=== PATIENT | male | born 1965 | race American Indian/Alaskan Native ===

== ENCOUNTER 2017-11-07 19:58 | Emergency (ER) | payer BC ==
[2017-11-07 20:02] VITALS: BMI 40.8
[2017-11-07 20:07] VITALS: BP 131/84; TEMP 98.7
--- NOTE | 2017-11-07 21:29 | ED PDOC ---
Arrival/HPI - General Chief Complaint: Lower Extremity Problem/Injury Time Seen by Provider: 11/07/17 20:22 Historian: Patient - History of Present Illness Narrative History of Present Illness (Text): 11/07/17 20:43 Patient is a 51 year old male whose past medical history includes hypertension, who presents to the Emergency department complaining of left leg swelling over the past few days. Patient describes some discomfort to the area. Of note he takes Lisinopril and HCTZ. Patient denies any history of fever,trauma, dyspnea, chest pain, or any other complaints. Time/Duration: < week Symptom Onset: Gradual Symptom Course: Worsening Context: Home Past Medical History - Provider Review Nursing Documentation Reviewed: Yes - Infectious Disease Hx of Infectious Diseases: None - Cardiac Hx Hypertension: Yes - Psychiatric Hx Substance Use: Yes - Surgical History Hx Appendectomy: Yes Hx Orthopedic Surgery: Yes (r knee sx) - Anesthesia Hx Anesthesia: Yes Hx Anesthesia Reactions: No Hx Malignant Hyperthermia: No Family/Social History - Physician Review Nursing Documentation Reviewed: Yes Family/Social History: No Known Family HX Smoking Status: Never Smoked Hx Alcohol Use: Yes Frequency of alcohol use: Few days per week Hx Substance Use: Yes Substance used: marijuana Allergies/Home Meds Allergies/Adverse Reactions: Allergies shrimp Allergy (Verified 11/07/17 20:02) SWELLING Home Medications: Home Meds Medication Instructions Recorded Confirmed Hydrochlorothiazide [Microzide] 1 cap PO DAILY 11/07/17 11/07/17 Lisinopril [Zestril] 1 tab PO DAILY 11/07/17 11/07/17 Review of Systems - Physician Review All systems were reviewed & negative as marked: Yes - Review of Systems Respiratory: absent: SOB Cardiovascular: Edema (left lower extremity). absent: Chest Pain Musculoskeletal: Myalgias (left lower extremity discomfort) Endocrine: Normal Physical Exam Vital Signs Reviewed: Yes Vital Signs Temp Pulse Resp BP Pulse Ox 11/07/17 23:31 87 20 97 11/07/17 20:06 98.7 F 92 H 18 131/84 94 L Temperature: Afebrile Blood Pressure: Normal Pulse: Regular Respiratory Rate: Normal Appearance: Positive for: Well-Appearing Mental Status: Positive for: Alert and Oriented X 3 - Systems Exam Head: Present: Atraumatic, Normocephalic Pupils: Present: PERRL Extroacular Muscles: Present: EOMI Conjunctiva: Present: Normal Mouth: Present: Moist Mucous Membranes Neck: Present: Normal Range of Motion Respiratory/Chest: Present: Clear to Auscultation, Good Air Exchange. No: Respiratory Distress, Accessory Muscle Use Cardiovascular: Present: Regular Rate and Rhythm, Normal S1, S2. No: Murmurs Abdomen: No: Tenderness, Distention, Peritoneal Signs Back: Present: Normal Inspection Upper Extremity: Present: Normal Inspection. No: Cyanosis, Edema Lower Extremity: Present: Edema (Swelling of left lower extremity), CALF TENDERNESS (mild), Erythema (Left lower extremity from below knee to foot.), Neurovascularly Intact, Other (Warmth of left lower extremity) Neurological: Present: GCS=15, CN II-XII Intact, Speech Normal Skin: Present: Warm, Dry, Normal Color. No: Rashes Psychiatric: Present: Alert, Oriented x 3, Normal Insight, Normal Concentration Medical Decision Making ED Course and Treatment: 11/07/17 20:43 Impression: Patient is a 51 year old male who is complaining of worsening left leg edema with some discomfort. Differential Diagnosis included but are not limited to: Cellulitis vs. DVT Plan: -- Labs -- Lower extremity ultrasound -- blood work -- Reassess and disposition Prior Visits: Notes and results from previous visits were reviewed. Progress Notes: 11/07/17 22:18 US Duplex Lower Extremities negative for DVT. 11/07/17 22:35 Chest X-Ray reviewed, shows no acute processes. 11/07/17 23:02 Pt refused IV antibiotics, states he preferred oral antibiotics. Pt did not want to stay in the hospital and was advised on the risks of leaving against medical advice. Pt continues to refuse to stay. Pt strongly encouraged to f/u with his PMD this week and pt will sign out against medical advice. The patient is choosing to leave against medical advice. I have personally explained to the patient that choosing to do so may result in permanent bodily harm or . I have discussed at great length that without further evaluation and monitoring there may be unforeseen circumstances and/or deterioration causing permanent bodily harm or as a result of their choice. The patient is alert, oriented, and shows the mental capacity to make clear decisions regarding the patients health care at this time. The patient continues to wish to leave against medical advice. In light of the patients decision to leave against medical advice, patient is aware of the importance to following up as instructed. The patient has been advised that they should return to the emergency room immediately if they change their mind at any time, or if their condition begins to change or worsen in any way. - Lab Interpretations Lab Results: 11/07/17 22:02 11/07/17 22:02 Lab Results 11/07/17 22:02: WBC 4.7, RBC 3.94, Hgb 11.1 L, Hct 34.5 L, MCV 87.6, MCH 28.2, MCHC 32.2, RDW 14.3, Plt Count 211, MPV 11.5 H 11/07/17 22:02: Sodium 142, Potassium 3.9, Chloride 100, Carbon Dioxide 34 H, Anion Gap 12, BUN 11, Creatinine 1.1, Est GFR ( Amer) > 60, Est GFR (Non- Af Amer) > 60, Random Glucose 122 H, Calcium 8.9, Total Bilirubin 0.3, AST 52, ALT 42, Alkaline Phosphatase 86, Total Protein 7.5, Albumin 3.8, Globulin 3.7, Albumin/Globulin Ratio 1.0 L I have reviewed the lab results: Yes - RAD Interpretation Radiology Orders: 11/07/17 20:33 DUPLEX LOWER EXTRM VEIN BILAT [US] Stat Heating Unit Mechanic: ED Physician, Radiologist - EKG Interpretation Interpreted by ED Physician: Yes Type: 12 lead EKG - Medication Orders Current Medication Orders: Discontinued Medications Cephalexin Monohydrate (Keflex) 500 mg PO ONCE STA PRN Reason: Protocol Stop: 11/07/17 23:09 Last Admin: 11/07/17 23:29 Dose: 500 mg - Scribe Statement The provider has reviewed the documentation as recorded by the Katharina Melgar Provider Scribe Attestation: All medical record entries made by the Katharina were at my direction and personally dictated by me. I have reviewed the chart and agree that the record accurately reflects my personal performance of the history, physical exam, medical decision making, and the department course for this patient. I have also personally directed, reviewed, and agree with the discharge instructions and disposition. Disposition/Present on Arrival - Present on Arrival Any Indicators Present on Arrival: No History of DVT/PE: No History of Uncontrolled Diabetes: No Urinary Catheter: No History of Decub. Ulcer: No History Surgical Site Infection Following: None - Disposition Have Diagnosis and Disposition been Completed?: Yes Diagnosis: Cellulitis, leg Disposition: AGAINST MEDICAL ADVICE Disposition Time: 23:11 Patient Plan: Discharge Condition: GOOD Discharge Instructions (ExitCare): Cellulitis (ED) Additional Instructions: Take meds as prescribed/Must follow up with your doctor this week Prescriptions: Cephalexin [cephalexin] 500 mg PO TID #21 cap Forms: Squee (Emirati)
[2017-11-07 22:21] LABS: ALBUMIN 3.8 g/dL (3.0-4.8); ALT/SGPT 42 U/L (7-56); AST/SGOT 52 U/L (17-59); BLOOD UREA NITROGEN 11 mg/dL (7-21); CALCIUM 8.9 mg/dL (8.4-10.5); GFR NON-AFRICAN AMERICAN > 60
[2017-11-07 22:34] LABS: HEMOGLOBIN 11.1 g/dL (14.0-18.0); MEAN CELL VOLUME 87.6 fl (80.0-105.0); MEAN CORPUSCULAR HEMOGLOBIN 28.2 pg (25.0-35.0); MEAN CORPUSCULAR HGB CONC 32.2 g/dl (31.0-37.0); MEAN PLATELET VOLUME 11.5 fl (7.0-11.0); RBC 3.94 10^6/uL (3.5-6.1); RED CELL DISTRIBUTION WIDTH 14.3 % (11.5-14.5); WHITE BLOOD COUNT 4.7 10^3/ul (4.5-11.0)
[2017-11-07 23:32] VITALS: PULSE 87; RESP 20; O2SAT 97
--- NOTE | 2017-11-08 08:08 | US ---
HISTORY: Leg pain and swelling. Evaluate for DVT PHYSICIAN(S): Yadiel Wilhelm MD. TECHNIQUE: Duplex sonography and color-flow Doppler with graded compression were used to evaluate the deep venous systems of both lower extremities. The exam is limited by edema FINDINGS: The visualized deep venous systems of both lower extremities are sonographically normal and compressible. Normal wave forms and augmentation are seen. There is no sonographic evidence for deep venous thrombosis in the visualized segments of both lower extremities. IMPRESSION: No sonographic evidence for deep venous thrombosis in the visualized segments of both lower extremities.
== END 2017-11-07 23:31 | disposition left against medical advice (07) ==
LOC: EDBD → ED 19:58
DX: L03.116 Cellulitis of left lower limb (principal); I10 Essential (primary) hypertension